=== PATIENT | male | born 1960 | race Two or more races ===

== ENCOUNTER → 2016-10-14 | Outpatient (CLI) | payer OTHER ==
--- NOTE | 2016-10-14 10:23 | DX ---
Right Tibia/Fibula (Lower Leg) Clinical Indications: Pain following trauma. Findings: An acute fracture is not identified. A tibial intramedullary ami is in place and there are healed tibial and fibular midshaft fractures. The right knee is reported separately. Impression: Right tibia/fibula negative for fracture. A preliminary report was called to the patient's healthcare provider.
--- NOTE | 2016-10-14 10:25 | DX ---
Right Knee, 5 Views Clinical Indications: Pain following trauma. No prior studies are available for comparison. The righ t tibia/fibula are reported separately. Findings: A fracture or other acute osseous abnormality is not identified. The bone alignment is nor mal. Degenerative changes are seen. A joint effusion is noted. Impression: Negative for fracture. If symptoms persist, MRI could be considered for further evaluatio n. A preliminary report was called to the patient's healthcare provider.
== END ==
LOC: BRMIMAGING 09:09
PROVIDERS: ATTEND Internal Medicine
DX: S80.01XA Contusion of right knee, initial encounter (principal); X58.XXXA Exposure to other specified factors, initial encounter; M79.661 Pain in right lower leg
CPT/HCPCS: 73564-PO; 73590-PO